=== PATIENT | male | born 1935 | race Caucasian/White ===

== ENCOUNTER 2025-03-11 11:11 | Inpatient (IN) | payer OTHER ==
[~2025-03-11] VITALS: Ht 170.2 cm; Wt 66.2 kg
[2025-03-11 11:29] LABS: PLATELET COUNT (AUTO) 216 K/uL (150-450); RED BLOOD CELL COUNT(AUTO) 3.71 MIL/uL (4.5-6.0); RED CELL DISTRIBUTION WIDTH 15.5 % (11.5-15.0); WHITE BLOOD COUNT (AUTO) 6.6 K/uL (4.3-11.0)
[2025-03-11] MEDS: PIPERACILLIN /TAZOBACTAM 3.375 G in IV D5W 50 ML IV ONE (11:34)
[2025-03-11] MEDS: IV NS 0.9% 1,000 ML BAG IV ONE ×2 (11:34→11:35)
[2025-03-11 11:39] LABS: CALCIUM, SERUM 8.6 mg/dL (8.5-10.1); CREATININE 1.6 mg/dL (0.6-1.3); SODIUM SERUM 147 mmol/L (136-145)
[2025-03-11 11:43] LABS: INR 0.95 (0.91-1.10)
[2025-03-11 11:46] LABS: LACTIC ACID 1.4 mmol/L (0.4-2.0)
[2025-03-11 11:53] LABS: ASPARTATE AMINOTRANSFERASE 18 U/L (15-37); TOTAL PROTEIN, SERUM 5.5 g/dL (6.4-8.2)
[2025-03-11 12:04] LABS: UREA NITROGEN, BLOOD 85 mg/dL (7-18)
[2025-03-11] MEDS: VANCOMYCIN 1 GM in IV D5W 250 ML IV ONE (12:05)
[2025-03-11 12:28] LABS: APPEARANCE,URINE SLIGHTLY CLOUDY (CLEAR); BLOOD, URINE 2+ Ery/uL (NEGATIVE); LEUKOCYTE ESTERASE ,URINE TRACE (NEGATIVE); NITRITE, URINE NEGATIVE (NEGATIVE); UGLUCOSE NEGATIVE (NEGATIVE)
[2025-03-11 12:43] LABS: ADD URINE CULTURE YES; CALCIUM OXALATE CRYSTALS,UR Rare /HPF (None Seen); SQUAMOUS EPITHELIAL CELL,UR None Seen /HPF (None Seen)
[2025-03-11] MEDS ORDERED: ZOLPIDEM TARTRATE 5 MG TABLET PO PRN (13:00)
[2025-03-11] MEDS ORDERED: DOSING PER PHARMACY-VANCOMYCIN IV XX PRN (13:00)
[2025-03-11] MEDS ORDERED: ONDANSETRON HCL/PF 4 MG/2 ML VIAL IVP PRN (13:00)
[2025-03-11] MEDS ORDERED: MAG HYDROX/AL HYDROX/SIMETH 30 ML UDC PO PRN (13:00)
[2025-03-11] MEDS ORDERED: DOSING PER PHARMACY-ZOSYN IV 1 EA EA XX PRN (13:00)
[2025-03-11] MEDS ORDERED: MAGNESIUM HYDROXIDE 30 ML UDC PO PRN (13:00)
[2025-03-11] MEDS ORDERED: ACETAMINOPHEN 325 MG TABLET PO PRN (13:00)
[2025-03-11] MEDS ORDERED: Z GUARD REMEDY 4 OZ OINT TP PRN (13:00)
[2025-03-11] MEDS: ZOSYN IVPB 3.375 G in IV D5W 50ml IV SCH (18:13)
[2025-03-11] MEDS: IV 1/2NS 1000 ML 1,000 ML IV PRN (18:13)
[2025-03-11 20:00] VITALS: BP 86/48; TEMP 97.3; O2SAT 98
[2025-03-11] MEDS: HEPARIN SODIUM, PORCINE 5000 UNITS/1 ML VIAL SQ SCH (21:46)
[2025-03-12] VITALS (7 sets, daily range): BP systolic 90–140; BP diastolic 13–118; TEMP 97.3–97.8; O2SAT 83–100
[2025-03-12 00:58] LABS: ABG BASE EXCESS -3.8 mmol/L (-2.0-3.0); ABG OXYGEN SATURATION 96.2 % (94.0-98.0); ABG PCO2 50.4 mmHg (35.0-48.0); ABG PH 7.280 (7.350-7.450); ABG PO2 90.4 mmHg (83.0-108.0); ABG TOTAL HEMOGLOBIN 11.2 G/dL (13.5-17.5); FLOW, BLOOD GAS 2.00 L/min (0.00-30.00); FRACTIONATED INSPIRED OXYGEN 28.0 %; SITE, ABG ALINE
[2025-03-12] MEDS ORDERED: IV LR 500 ML IV ONE (01:00)
[2025-03-12] MEDS: IV LR 500 ML IV ONE (01:46)
[2025-03-12] MEDS ORDERED: NOREPINEPHRINE 8 MG in IV NS 0.9% 242 ML IV PRN (02:00)
[2025-03-12] MEDS: IV LR 1000 ML 1,000 ML IV PRN (02:07)
[2025-03-12] MEDS ORDERED: SODIUM BICARBONATE SYR 50 MEQ/50 ML DISP.SYRIN ONE ×2 (03:45→04:00)
[2025-03-12] MEDS ORDERED: EPINEPHRINE (1:1000) 10 MG in IV NS 0.9% 240 ML IV PRN (04:00)
[2025-03-12] MEDS ORDERED: PROPOFOL 100 ML IV PRN (04:00)
[2025-03-12] MEDS ORDERED: Magnesium 1 GM/2 ML VIAL ONE (04:00)
[2025-03-12] MEDS ORDERED: EPINEPHRINE (1:10,000) SYRINGE 1 MG/10 ML DISP.SYRIN ONE (04:00)
[2025-03-12] MEDS ORDERED: Sodium Bicarbonate 150 MEQ in IV D5W 1,000 ML IV PRN (04:00)
[2025-03-12] MEDS ORDERED: CALCIUM CHLORIDE 1,000 MG/10 ML DISP.SYRIN ONE (04:00)
[2025-03-12] MEDS ORDERED: EPINEPHRINE (1:1000) MDV 30 MG/30ML VIAL ONE (04:18)
[2025-03-12] MEDS ORDERED: SUCCINYLCHOLINE CHLORIDE 20 MG/ML VIAL IV ONE (06:50)
[2025-03-12] MEDS ORDERED: PROPOFOL 200 MG/20 ML VIAL IV ONE (06:50)
[2025-03-12] MEDS ORDERED: PANTOPRAZOLE 40 MG TABLET.DR PO SCH (07:30)
[2025-03-12] MEDS ORDERED: EPINEPHRINE (1:10,000) SYRINGE 1 MG/10 ML DISP.SYRIN IVP ONE (10:53)
[2025-03-12] MEDS ORDERED: VANCOMYCIN 750 MG in IV D5W 250 ML IV SCH (12:00)
== END 2025-03-12 06:51 | DRG 698 ==
LOC: ER 11:24 → TELE 16:14 → ICU 03-12 03:16
PROVIDERS: ADMIT Student in an Organized Health Care Education/Training Program; ATTEND Nurse Practitioner Acute Care
PROC: 0BH17EZ Insertion of Endotracheal Airway into Trachea, Via Natural or Artificial Opening (ICD-10-PCS; principal; 2025-03-12)
PROC: 5A12012 Performance of Cardiac Output, Single, Manual (ICD-10-PCS; 2025-03-12)
DX: T83.511A Infection and inflammatory reaction due to indwelling urethral catheter, initial encounter (principal); A41.9 Sepsis, unspecified organism; E43 Unspecified severe protein-calorie malnutrition; J96.01 Acute respiratory failure with hypoxia; N17.0 Acute kidney failure with tubular necrosis; R65.21 Severe sepsis with septic shock; G92.8 Other toxic encephalopathy; J96.02 Acute respiratory failure with hypercapnia; J69.0 Pneumonitis due to inhalation of food and vomit; N39.0 Urinary tract infection, site not specified; B96.89 Other specified bacterial agents as the cause of diseases classified elsewhere; D63.8 Anemia in other chronic diseases classified elsewhere; E87.0 Hyperosmolality and hypernatremia; E86.1 Hypovolemia; E86.9 Volume depletion, unspecified; Z68.22 Body mass index [BMI] 22.0-22.9, adult; Y84.6 Urinary catheterization as the cause of abnormal reaction of the patient, or of later complication, without mention of misadventure at the time of the procedure; Y92.129 Unspecified place in nursing home as the place of occurrence of the external cause
CPT/HCPCS: 36415; 36600; 71045-TC; 80048-TC; 80076-TC; 81001; 82803-TC; 82962-TC; 83605-TC; 84484-TC; 85025-TC; 85730-TC; 87040-TC; 87081-TC; 87086-TC; 87186-TC; 92950-TC; 94660; A4223; G0378; J0169; J0330; J1644; J2543; J2704; J3373; J3374; J3475; J3490; J7030; J7042; J7060; J7070; J7120